=== PATIENT | male | born 1965 | race Caucasian/White ===

== ENCOUNTER 2024-09-06 10:39 | Emergency (ER) | payer OTHER ==
[~2024-09-06] VITALS: Ht 175.3 cm; Wt 116.8 kg
[2024-09-06] MEDS ORDERED: LACTATED RINGER'S 1,000 ML IV ONE (11:00)
[2024-09-06] MEDS ORDERED: LORazepam 2 MG/ML VIAL IV ONE ×3 (11:00→12:00)
[2024-09-06 11:02] LABS: BASOPHILS 1.4 % (0-2); EOSINOPHILS 2.3 % (0-6); HEMATOCRIT 33.9 % (35.0-50.0); HEMOGLOBIN 11.8 g/dL (12.0-18.0); LYMPHOCYTES 18.9 % (24-44); MCH 35.9 (27-36); MCV 102.7 fl (81-99); MONOCYTES 12.1 % (0-12); NEUTROPHILS 65.3 % (39-80); PLATELET COUNT 92 K/uL (140-440); RDW 15.2 (10.5-15.0)
[2024-09-06 11:13] LABS: BILIRUBIN, URINE NEGATIVE (negative); BLOOD/HGB, URINE NEGATIVE (Negative); KETONE, URINE NEGATIVE (Negative); LEUK ESTERASE, URINE NEGATIVE (negative); NITRITE, URINE NEGATIVE (negative); PH, URINE 6.5 (5-7)
[2024-09-06 11:18] LABS: ALBUMIN 2.5 g/dL (3.4-5.0); ALBUMIN/GLOBULIN RATIO 0.58 (1.1-2.4); ALCOHOL, MEDICAL <3 ng/dL (<3); ALKALINE PHOSPHATASE 164 U/L (46-116); ALT (SGPT) 62 U/L (14-59); ANION GAP 10.6 (7-21); AST (SGOT) 73 U/L (15-37); BILIRUBIN, TOTAL 2.3 ng/dL (0.2-1.0); BUN/CREATININE RATIO 9.48 (6.0-28.6); CALCIUM 8.6 mg/dL (8.5-10.1); CARBON DIOXIDE 29 mmol/L (21-32); CHLORIDE 100 mmol/L (98-107); CREATINE KINASE 183 U/L (39-308); CREATININE, SERUM 1.37 mg/dL (0.70-1.30); GLOMERULAR FILTRATION RATE,EST 59 mL/min (>60); POTASSIUM 3.6 mmol/L (3.5-5.1); PROTEIN, TOTAL 6.8 g/dL (6.4-8.2); UREA NITROGEN 13 mg/dL (7-18)
[2024-09-06 11:28] LABS: AMPHETAMINES, URINE NEGATIVE (NEGATIVE); BARBITURATES, URINE NEGATIVE (NEGATIVE); BENZODIAZEPINE, URINE NEGATIVE (NEGATIVE); BUPRENORPHINE, URINE POSITIVE (NEGATIVE); CANNABINOID, URINE NEGATIVE (NEGATIVE); COCAINE, URINE NEGATIVE (NEGATIVE); ECSTASY, URINE NEGATIVE (NEGATIVE); FENTANYL, URINE NEGATIVE (NEGATIVE); METHADONE, URINE NEGATIVE (NEGATIVE); OPIATES, URINE NEGATIVE (NEGATIVE); OXYCODONE, URINE NEGATIVE (NEGATIVE); PHENCYCLIDINE, URINE NEGATIVE (NEGATIVE)
[2024-09-06] MEDS ORDERED: DIPHTH,PERTUSS(ACELL),TET VAC 0.5 ML SYRINGE IM ONE (11:30)
[2024-09-06 11:35] LABS: ABO O; ANTIBODY SCREEN NEGATIVE; RH POSITIVE
[2024-09-06] MEDS ORDERED: ATIVAN1 MG PO (12:36)
[2024-09-06 13:20] VITALS: BP 120/65
== END 2024-09-06 13:20 | disposition home or self-care (01) ==
LOC: ED 10:39 → EDBD 10:40 → ED 13:20
PROVIDERS: Emergency Medicine
DX: S60.512A Abrasion of left hand, initial encounter (principal); V69.9XXA Occupant (driver) (passenger) of heavy transport vehicle injured in unspecified traffic accident, initial encounter
CPT/HCPCS: 36415; 70450; 71260; 72125; 73130; 74177; 80053; 80307; 81003; 82553; 83605; 85025; 86850; 86900; 86901; 90471; 90715; 99284-25; G0480; J2060; J7121; Q9967